=== PATIENT | male | born 1955 | race Caucasian/White ===

== ENCOUNTER 2017-09-15 12:36 | Emergency (ER) | payer OTHER ==
[~2017-09-15] VITALS: Ht 175.3 cm; Wt 95.3 kg
[~2017-09-15 12:36] MED LIST: AMBIEN 5 MG TABL5 M1 PO; AMOXICILLIN 50500 M1 PO; ATIVAN1 MG PO; ATORVASTATIN CA40 MG; BETIMOL15 ML; BUSPAR30 MG PO; CELEXA 20 MG TA20 MG PO; CLONAZEPAM 0.50.5 M1; KLOR-CON 1010 MEQ PO; LEXAPRO; LISINOPRIL10 MG PO; LISINOPRIL2.5 MG; NAPROSYN500 MG PO; NEURONTIN600 MG PO; NEXIUM40 MG PO; NORCO 5-325 TA1 EACH PO; NORCO 7.5-3251 EACH PO; OMEPRAZOLE20 M2 PO; PENICILLIN VK500 M1 PO; PENICILLIN VK500 MG PO; PREDNISONE 20 M20 M1 PO; PRISTIQ50 M1; REMERON15 MG PO; SIMBRINZA 1%-0.28 ML OPHTHALMIC; SKELAXIN 800 M800 M1 PO; SKELAXIN 800 M800 MG PO; SUBOXONE 2 MG-01 TAB; SUBOXONE 8 MG-1 EAC3 SUBLING; TRAVOPROST 0.02.5 ML OPHTHALMIC; VICODIN 5-5001 EACH PO; XANAX 0.5 MG0.5 MG PO; ZANAFLEX4 MG PO
[2017-09-15] MEDS ORDERED: XARELTO20 MG PO (12:44)
[2017-09-15] MEDS ORDERED: KEFLEX500 M1 PO (13:41)
[2017-09-15 14:01] VITALS: BP 129/82
== END 2017-09-15 14:01 | disposition home or self-care (01) ==
LOC: M.ERS 12:36
DX: S01.01XA Laceration without foreign body of scalp, initial encounter (principal); I10 Essential (primary) hypertension; W22.8XXA Striking against or struck by other objects, initial encounter; Y93.89 Activity, other specified; Y92.89 Other specified places as the place of occurrence of the external cause; Y99.8 Other external cause status

== ENCOUNTER 2018-06-10 12:17 | Emergency (ER) | payer OTHER ==
[~2018-06-10] VITALS: Ht 167.6 cm; Wt 90.7 kg
[~2018-06-10 12:17] MED LIST changes: +KEFLEX500 M1 PO; +XARELTO20 MG PO
[2018-06-10] MEDS ORDERED: METAMUCIL FIBE3.4 GM PO (12:34)
[2018-06-10] MEDS ORDERED: BENTYL 10 MG CA10 M1 PO (12:34)
[2018-06-10 13:19] LABS: ABSOLUTE BASOPHILS 0.1 thou/uL (0.0-0.2); ABSOLUTE EOSINOPHILS 0.1 thou/uL (0.0-0.7); ABSOLUTE LYMPHOCYTES 1.8 thou/uL (0.8-5.3); ABSOLUTE MONOCYTES 0.6 thou/uL (0.0-1.2); ABSOLUTE NEUTROPHILS 7.3 thou/uL (1.6-8.1); BASOPHILS 1.1 %; EOSINOPHILS 0.9 %; HEMATOCRIT 48.2 % (42.0-52.0); HEMOGLOBIN 16.2 gm/dL (14.0-18.0); LYMPHOCYTES 18.2 %; MCH 31.3 pg (26.0-34.0); MCHC 33.6 g/dL (28.0-37.0); MCV 93.1 fL (80.0-100.0); MONOCYTES 6.5 %; MPV 7.5 fl. (7.2-11.1); NUCLEATED RBCS 0 /100WBC; PLATELET COUNT* 226 thou/uL (150-400); POLYS 73.3 %; RBC 5.18 mil/uL (4.50-6.00); RDW-CV 13.5 % (10.5-14.5); WBC 9.9 thou/uL (4.0-11.0)
[2018-06-10 13:36] LABS: ANION GAP 2 mmol/L (7-16); BUN 12 mg/dL (7-18); CALCIUM 9.1 mg/dL (8.5-10.1); CHLORIDE 103 mmol/L (98-107); CO2 30 mmol/L (21-32); CREATININE 1.4 mg/dL (0.6-1.3); GLUCOSE 106 mg/dL (70-99); POTASSIUM 4.6 mmol/L (3.5-5.1); SODIUM 135 mmol/L (136-145)
[2018-06-10 13:41] LABS: ALBUMIN 3.7 g/dL (3.4-5.0); ALKALINE PHOSPHATASE 86 U/L (46-116); LIPASE 79 U/L (73-393); SGOT 25 U/L (15-37); SGPT 24 U/L (30-65); TOTAL BILIRUBIN 0.6 mg/dL (<0.1-1.0); TOTAL PROTEIN 8.1 g/dL (6.4-8.2); TROPONIN-I LEVEL <0.06 ng/mL (<0.06)
[2018-06-10 13:43] LABS: URINE BILIRUBIN NEGATIVE (Negative); URINE BLOOD TRACE (Negative); URINE CLARITY CLEAR; URINE COLOR YELLOW; URINE GLUCOSE-RANDOM NEGATIVE (Negative); URINE KETONES NEGATIVE (Negative); URINE LEUKOCYTES-REFLEX NEGATIVE (Negative); URINE NITRITE-REFLEX NEGATIVE (Negative); URINE PROTEIN NEGATIVE (Negative); URINE UROBILINOGEN 0.2 E.U./dl (0.2-1.0)
[2018-06-10] MEDS ORDERED: CARAFATE 1 GM TA1 G1 PO (14:55)
[2018-06-10 15:15] VITALS: BP 122/86
--- NOTE | 2018-06-10 16:41 | EKG ---
[place] [address] ELECTROCARDIOGRAM REPORT Name: MILAGRO SAGE [id number] Admission: 06/10/18 Attend Phys: Discharge: 06/10/18 Date of : 53 Report #: [id number] THIS REPORT FOR: //name// 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: Mk [facility] : 1955 Requested By: Néstor Salmon Order Number: [id number] MD: Emiliano Corrales Measurements Intervals [place] Rate: 87 P: 52 [place]: 198 QRS: 44 QRSD: 128 T: 8 QT: 354 QTc: 426 Interpretive Statements Sinus rhythm Right bundle branch block Borderline ST elevation, lateral leads Compared to ECG 10/12/2015 12:41:51 no change Electronically Signed On 06-10-2018 16:41:39 CDT by Emiliano Corrales [email or web address] <ELECTRONICALLY SIGNED> By: Emiliano Corrales MD, [facility] 06/10/18 1641 1243 1243 Emiliano Corrales MD, FACC /EPI
== END 2018-06-10 15:16 | disposition home or self-care (01) ==
LOC: M.ERS 12:17
PROVIDERS: Emergency Medicine Emergency Medical Services
DX: R10.13 Epigastric pain (principal); R19.7 Diarrhea, unspecified; I12.9 Hypertensive chronic kidney disease with stage 1 through stage 4 chronic kidney disease, or unspecified chronic kidney disease; N18.2 Chronic kidney disease, stage 2 (mild); F41.9 Anxiety disorder, unspecified; E78.5 Hyperlipidemia, unspecified; K21.9 Gastro-esophageal reflux disease without esophagitis

== ENCOUNTER → 2018-07-13 | Outpatient (CLI) | payer OTHER ==
[~2018-07-13] MED LIST changes: +BENTYL 10 MG CA10 M1 PO; +CARAFATE 1 GM TA1 G1 PO; +METAMUCIL FIBE3.4 GM PO
== END ==
LOC: M.LAB 16:42
DX: R11.0 Nausea (principal); R10.9 Unspecified abdominal pain

== ENCOUNTER → 2018-07-21 | Outpatient (CLI) | payer OTHER | LOC: M.NUC 07:30 | DX: R19.7 Diarrhea, unspecified (principal); R10.9 Unspecified abdominal pain; R14.2 Eructation; R11.0 Nausea ==

== ENCOUNTER → 2020-04-05 | Outpatient (CLI) | payer OTHER | LOC: M.NUC 07:30 | PROVIDERS: ATTEND Internal Medicine Gastroenterology | DX: K31.84 Gastroparesis (principal) ==

== ENCOUNTER 2020-10-08 18:26 | Emergency (ER) | payer OTHER ==
[~2020-10-08] VITALS: Ht 175.3 cm; Wt 96.2 kg
[2020-10-08] MEDS ORDERED: AMBIEN5 MG PO (18:39)
[2020-10-08] MEDS ORDERED: LIPITOR40 MG PO (18:39)
[2020-10-08] MEDS ORDERED: DEPRESSION MED (18:40)
[2020-10-08] MEDS ORDERED: LINZESS72 MCG PO (18:40)
[2020-10-08] MEDS ORDERED: CLONAZEPAM 0.50.5 M1 PO (18:48)
[2020-10-08 18:49] LABS: URINE BILIRUBIN NEGATIVE (Negative); URINE BLOOD TRACE (Negative); URINE CLARITY CLEAR; URINE COLOR YELLOW; URINE GLUCOSE-RANDOM NEGATIVE (Negative); URINE KETONES NEGATIVE (Negative); URINE LEUKOCYTES-REFLEX NEGATIVE (Negative); URINE NITRITE-REFLEX NEGATIVE (Negative); URINE PROTEIN NEGATIVE (Negative); URINE SPECIFIC GRAVITY 1.015 (1.005-1.030); URINE UROBILINOGEN 0.2 E.U./dl (0.2-1.0)
[2020-10-08 19:01] LABS: ABSOLUTE BASOPHILS 0.1 thou/uL (0.0-0.2); ABSOLUTE EOSINOPHILS 0.1 thou/uL (0.0-0.7); ABSOLUTE LYMPHOCYTES 2.5 thou/uL (0.8-5.3); ABSOLUTE MONOCYTES 0.8 thou/uL (0.0-1.2); ABSOLUTE NEUTROPHILS 7.2 thou/uL (1.6-8.1); BASOPHILS 0.6 %; EOSINOPHILS 1.1 %; HEMATOCRIT 49.3 % (42.0-52.0); HEMOGLOBIN 16.5 gm/dL (14.0-18.0); LYMPHOCYTES 23.3 %; MCH 31.3 pg (26.0-34.0); MCHC 33.4 g/dL (28.0-37.0); MCV 93.8 fL (80.0-100.0); MONOCYTES 7.2 %; MPV 7.3 fl. (7.2-11.1); NUCLEATED RBCS 0 /100WBC; PLATELET COUNT* 259 thou/uL (150-400); POLYS 67.8 %; RBC 5.26 mil/uL (4.50-6.00); WBC 10.7 thou/uL (4.0-11.0)
[2020-10-08 19:12] LABS: APTT 32.6 Seconds (25.0-31.3); INR 1.2; PROTIME 13.1 Seconds (9.20-11.50)
[2020-10-08 19:14] LABS: CALCIUM 8.7 mg/dL (8.5-10.1); CREATININE 1.4 mg/dL (0.6-1.3); POTASSIUM 3.9 mmol/L (3.5-5.1)
[2020-10-08 19:18] LABS: ALBUMIN 3.7 g/dL (3.4-5.0); TOTAL BILIRUBIN 0.5 mg/dL (<0.1-1.0); TOTAL PROTEIN 7.7 g/dL (6.4-8.2)
[2020-10-08] MEDS ORDERED: BENTYL 10 MG CA10 M1 PO (19:34)
[2020-10-08 20:40] VITALS: BP 132/80
--- NOTE | 2020-10-09 11:03 | EKG ---
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
== END 2020-10-08 20:40 | disposition home or self-care (01) ==
LOC: M.ERS 18:26
PROVIDERS: Nurse Practitioner Family
DX: F41.9 Anxiety disorder, unspecified (principal); G89.29 Other chronic pain; R10.84 Generalized abdominal pain; Z20.822 Contact with and (suspected) exposure to COVID-19; K21.9 Gastro-esophageal reflux disease without esophagitis; E78.5 Hyperlipidemia, unspecified; Z90.89 Acquired absence of other organs; I13.10 Hypertensive heart and chronic kidney disease without heart failure, with stage 1 through stage 4 chronic kidney disease, or unspecified chronic kidney disease; N18.2 Chronic kidney disease, stage 2 (mild); Z86.718 Personal history of other venous thrombosis and embolism

== ENCOUNTER → 2020-10-22 | Outpatient (CLI) | payer OTHER ==
[~2020-10-22] MED LIST changes: +AMBIEN5 MG PO; +CLONAZEPAM 0.50.5 M1 PO; +DEPRESSION MED; +LINZESS72 MCG PO; +LIPITOR40 MG PO
== END ==
LOC: M.CT 13:10
PROVIDERS: ATTEND Family Medicine
DX: R10.84 Generalized abdominal pain (principal)

== ENCOUNTER → 2020-10-30 | Outpatient (CLI) | payer OTHER | LOC: M.CT 12:50 | PROVIDERS: ATTEND Otolaryngology | DX: J32.3 Chronic sphenoidal sinusitis (principal); J32.0 Chronic maxillary sinusitis ==

== ENCOUNTER → 2020-11-15 | Outpatient (CLI) | payer OTHER ==
[2020-11-15 11:38] LABS: HEMATOCRIT 50.8 % (42.0-52.0); HEMOGLOBIN 16.9 gm/dL (14.0-18.0); MCH 31.2 pg (26.0-34.0); MCHC 33.2 g/dL (28.0-37.0); MPV 7.6 fl. (7.2-11.1); RBC 5.4 mil/uL (4.50-6.00); RDW-CV 13.9 % (10.5-14.5); WBC 11.1 thou/uL (4.0-11.0)
[2020-11-15 11:51] LABS: ALBUMIN 3.9 g/dL (3.4-5.0); CALCIUM 9.1 mg/dL (8.5-10.1); CREATININE 1.4 mg/dL (0.6-1.3); POTASSIUM 4.3 mmol/L (3.5-5.1); TOTAL BILIRUBIN 0.4 mg/dL (<0.1-1.0); TOTAL PROTEIN 8.7 g/dL (6.4-8.2)
== END ==
LOC: M.ULTRA 10:30
PROVIDERS: ATTEND Internal Medicine Gastroenterology
DX: K76.0 Fatty (change of) liver, not elsewhere classified (principal); N28.1 Cyst of kidney, acquired; D73.4 Cyst of spleen

== ENCOUNTER → 2020-12-05 | Outpatient (CLI) | payer OTHER | LOC: M.NUC 07:21 | PROVIDERS: ATTEND Internal Medicine Gastroenterology | DX: R10.9 Unspecified abdominal pain (principal) ==

== ENCOUNTER 2021-02-02 17:11 | Emergency (ER) | payer OTHER ==
[~2021-02-02] VITALS: Ht 175.3 cm; Wt 97.1 kg
[2021-02-02] MEDS ORDERED: DEPRESSION MED (17:29)
[2021-02-02 17:55] LABS: ABSOLUTE BASOPHILS 0.1 thou/uL (0.0-0.2); ABSOLUTE EOSINOPHILS 0.1 thou/uL (0.0-0.7); ABSOLUTE LYMPHOCYTES 2.3 thou/uL (0.8-5.3); ABSOLUTE MONOCYTES 0.9 thou/uL (0.0-1.2); ABSOLUTE NEUTROPHILS 8.3 thou/uL (1.6-8.1); BASOPHILS 0.8 %; EOSINOPHILS 0.8 %; HEMATOCRIT 48.1 % (42.0-52.0); HEMOGLOBIN 16.3 gm/dL (14.0-18.0); LYMPHOCYTES 19.4 %; MCH 32.3 pg (26.0-34.0); MCHC 33.9 g/dL (28.0-37.0); MCV 95.5 fL (80.0-100.0); MONOCYTES 7.4 %; MPV 7.7 fl. (7.2-11.1); NUCLEATED RBCS 0 /100WBC; PLATELET COUNT* 253 thou/uL (150-400); POLYS 71.6 %; RBC 5.04 mil/uL (4.50-6.00); RDW-CV 13.7 % (10.5-14.5); WBC 11.7 thou/uL (4.0-11.0)
[2021-02-02 18:04] LABS: CALCIUM 8.3 mg/dL (8.5-10.1); CREATININE 1.3 mg/dL (0.6-1.3); POTASSIUM 3.8 mmol/L (3.5-5.1)
[2021-02-02 18:08] LABS: ALBUMIN 3.6 g/dL (3.4-5.0); TOTAL BILIRUBIN 0.6 mg/dL (<0.1-1.0); TOTAL PROTEIN 7.8 g/dL (6.4-8.2)
[2021-02-02 18:09] LABS: URINE BILIRUBIN NEGATIVE (Negative); URINE BLOOD TRACE (Negative); URINE CLARITY CLEAR; URINE COLOR YELLOW; URINE GLUCOSE-RANDOM NEGATIVE (Negative); URINE KETONES NEGATIVE (Negative); URINE LEUKOCYTES NEGATIVE (Negative); URINE NITRITE NEGATIVE (Negative); URINE PROTEIN NEGATIVE (Negative); URINE UROBILINOGEN 0.2 E.U./dl (0.2-1.0)
[2021-02-02 19:17] VITALS: BP 118/76
--- NOTE | 2021-02-03 11:49 | EKG ---
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: [facility] : 1955 Requested By: Tawny Bonilla Order Number: [id number] MD: Tai Lewis Measurements Intervals [place] Rate: 74 P: 26 [place]: 205 QRS: 39 QRSD: 134 T: 5 QT: 381 QTc: 423 Interpretive Statements Sinus rhythm Consider left atrial enlargement Right bundle branch block Borderline ST elevation, lateral leads Compared to ECG 10/08/2020 18:55:02 No significant changes Electronically Signed On 02-03-2021 11:48:58 CDT by Tai Lewis [email or web address] <ELECTRONICALLY SIGNED> By: Tai Lewis MD, FACC 02/03/21 1148 1735 1735 Tai Lewis MD, [facility] /EPI
== END 2021-02-02 19:17 | disposition home or self-care (01) ==
LOC: M.ERS 17:11
PROVIDERS: Physician Assistant
DX: K58.9 Irritable bowel syndrome, unspecified (principal); G89.29 Other chronic pain; E78.5 Hyperlipidemia, unspecified; K21.9 Gastro-esophageal reflux disease without esophagitis; I12.9 Hypertensive chronic kidney disease with stage 1 through stage 4 chronic kidney disease, or unspecified chronic kidney disease; N18.2 Chronic kidney disease, stage 2 (mild); Z90.89 Acquired absence of other organs; Z86.718 Personal history of other venous thrombosis and embolism

== ENCOUNTER 2021-02-15 23:20 | Observation (INO) | payer OTHER ==
[~2021-02-15] VITALS: Ht 175.3 cm; Wt 95.3 kg
[2021-02-15 23:26] VITALS: BP 115/87
[2021-02-15] MEDS ORDERED: FLAGYL500 M1 PO (23:39)
[2021-02-15 23:50] LABS: ABSOLUTE BASOPHILS 0.1 thou/uL (0.0-0.2); ABSOLUTE EOSINOPHILS 0.1 thou/uL (0.0-0.7); ABSOLUTE LYMPHOCYTES 3.1 thou/uL (0.8-5.3); ABSOLUTE NEUTROPHILS 9.3 thou/uL (1.6-8.1); EOSINOPHILS 0.5 %; HEMATOCRIT 45.6 % (42.0-52.0); HEMOGLOBIN 15.7 gm/dL (14.0-18.0); LYMPHOCYTES 22.9 %; MCH 32.4 pg (26.0-34.0); MCHC 34.4 g/dL (28.0-37.0); MONOCYTES 7.6 %; MPV 7.4 fl. (7.2-11.1); NUCLEATED RBCS 0 /100WBC; PLATELET COUNT* 267 thou/uL (150-400); RBC 4.85 mil/uL (4.50-6.00); RDW-CV 14.1 % (10.5-14.5); WBC 13.7 thou/uL (4.0-11.0)
[2021-02-15 23:59] LABS: URINE BILIRUBIN NEGATIVE (Negative); URINE BLOOD TRACE (Negative); URINE CLARITY CLEAR; URINE COLOR YELLOW; URINE GLUCOSE-RANDOM NEGATIVE (Negative); URINE KETONES NEGATIVE (Negative); URINE LEUKOCYTES-REFLEX NEGATIVE (Negative); URINE NITRITE-REFLEX NEGATIVE (Negative); URINE PROTEIN NEGATIVE (Negative); URINE UROBILINOGEN 0.2 E.U./dl (0.2-1.0)
[2021-02-16 00:01] LABS: CALCIUM 8.5 mg/dL (8.5-10.1); CREATININE 1.4 mg/dL (0.6-1.3); POTASSIUM 3.9 mmol/L (3.5-5.1)
[2021-02-16 00:05] LABS: ALBUMIN 3.9 g/dL (3.4-5.0); MAGNESIUM 2.1 mg/dL (1.8-2.4); TOTAL BILIRUBIN 0.4 mg/dL (<0.1-1.0); TOTAL PROTEIN 7.9 g/dL (6.4-8.2)
[2021-02-16 06:29] VITALS: BP 135/86
[2021-02-16 10:30] VITALS: BP 139/86
[2021-02-16 11:37] LABS: AMP/METHAMP Negative (Negative); BARBITURATES Negative (Negative); BENZODIAZEPINES Negative (Negative); COCAINE Negative (Negative); METHADONE Negative (Negative); OPIATES POSITIVE (Negative); PCP Negative (Negative); THC Negative (Negative)
--- NOTE | 2021-02-16 11:41 | EKG ---
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
[2021-02-16] MEDS ORDERED: ONDANSETRON HCL4 M2 PO (11:43)
[2021-02-16] MEDS ORDERED: PERCOCET 5-3251 EACH PO (11:43)
[2021-02-16 13:15] VITALS: BP 139/86
[2021-02-16 13:34] VITALS: BP 118/83
[2021-02-16 14:48] VITALS: BP 139/86
== END 2021-02-16 13:34 | disposition home or self-care (01) ==
LOC: M.ERS 23:20 → M.TBA-ER 02-16 02:29
PROVIDERS: Emergency Medicine; ADMIT Internal Medicine; ATTEND Internal Medicine
DX: R10.33 Periumbilical pain (principal); G89.29 Other chronic pain; Z20.822 Contact with and (suspected) exposure to COVID-19; E78.5 Hyperlipidemia, unspecified; K21.9 Gastro-esophageal reflux disease without esophagitis; D72.829 Elevated white blood cell count, unspecified; K59.00 Constipation, unspecified; F41.9 Anxiety disorder, unspecified; H40.9 Unspecified glaucoma; K58.9 Irritable bowel syndrome, unspecified; I12.9 Hypertensive chronic kidney disease with stage 1 through stage 4 chronic kidney disease, or unspecified chronic kidney disease; N18.2 Chronic kidney disease, stage 2 (mild); N17.9 Acute kidney failure, unspecified; Z86.718 Personal history of other venous thrombosis and embolism; Z98.890 Other specified postprocedural states

== ENCOUNTER 2021-04-15 12:45 | Emergency (ER) | payer OTHER ==
[~2021-04-15] VITALS: Ht 175.3 cm; Wt 99.3 kg
[~2021-04-15 12:45] MED LIST changes: +FLAGYL500 M1 PO; +ONDANSETRON HCL4 M2 PO; +PERCOCET 5-3251 EACH PO
--- NOTE | 2021-04-15 13:21 | EKG ---
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: [facility] : 1955 Requested By: Qian Jesus Order Number: [id number] MD: Emiliano Corrales Measurements Intervals [place] Rate: 87 P: 63 [place]: 183 QRS: 76 QRSD: 124 T: 30 QT: 351 QTc: 423 Interpretive Statements Sinus rhythm Right bundle branch block Compared to ECG 02/15/2021 23:35:57 no change Electronically Signed On 04-15-2021 13:21:29 CDT by Emiliano Corrales [email or web address] <ELECTRONICALLY SIGNED> By: Emiliano Corrales MD, [facility] 04/15/21 1321 1257 1257 Emiliano Corrales MD, FAC /EPI
[2021-04-15 14:33] LABS: URINE BILIRUBIN NEGATIVE (Negative); URINE BLOOD TRACE (Negative); URINE CLARITY CLEAR; URINE COLOR YELLOW; URINE GLUCOSE-RANDOM NEGATIVE (Negative); URINE KETONES NEGATIVE (Negative); URINE LEUKOCYTES NEGATIVE (Negative); URINE NITRITE NEGATIVE (Negative); URINE PROTEIN NEGATIVE (Negative); URINE UROBILINOGEN 0.2 E.U./dl (0.2-1.0)
[2021-04-15 14:48] LABS: ABSOLUTE BASOPHILS 0.1 thou/uL (0.0-0.2); ABSOLUTE LYMPHOCYTES 1.7 thou/uL (0.8-5.3); ABSOLUTE MONOCYTES 0.8 thou/uL (0.0-1.2); ABSOLUTE NEUTROPHILS 9.1 thou/uL (1.6-8.1); BASOPHILS 0.6 %; EOSINOPHILS 0.3 %; HEMATOCRIT 49.7 % (42.0-52.0); HEMOGLOBIN 16.4 gm/dL (14.0-18.0); LYMPHOCYTES 14.6 %; MCH 31.3 pg (26.0-34.0); MCHC 33.1 g/dL (28.0-37.0); MCV 94.6 fL (80.0-100.0); MONOCYTES 7.2 %; MPV 7.3 fl. (7.2-11.1); NUCLEATED RBCS 0 /100WBC; PLATELET COUNT* 265 thou/uL (150-400); POLYS 77.3 %; RBC 5.25 mil/uL (4.50-6.00); RDW-CV 13.1 % (10.5-14.5); WBC 11.7 thou/uL (4.0-11.0)
[2021-04-15 15:06] LABS: CALCIUM 9.1 mg/dL (8.5-10.1); CREATININE 1.3 mg/dL (0.6-1.3); POTASSIUM 4.5 mmol/L (3.5-5.1)
[2021-04-15 15:10] LABS: ALBUMIN 3.9 g/dL (3.4-5.0); TOTAL BILIRUBIN 0.6 mg/dL (<0.1-1.0); TOTAL PROTEIN 8.1 g/dL (6.4-8.2)
[2021-04-15] MEDS ORDERED: ZOFRAN ODT4 MG PO (16:58)
[2021-04-15 17:18] VITALS: BP 127/75
== END 2021-04-15 17:19 | disposition home or self-care (01) ==
LOC: M.ERS 12:45
PROVIDERS: Emergency Medicine
DX: R07.89 Other chest pain (principal); Z20.822 Contact with and (suspected) exposure to COVID-19; R06.09 Other forms of dyspnea; I12.9 Hypertensive chronic kidney disease with stage 1 through stage 4 chronic kidney disease, or unspecified chronic kidney disease; N18.2 Chronic kidney disease, stage 2 (mild); F41.9 Anxiety disorder, unspecified; E78.5 Hyperlipidemia, unspecified; K21.9 Gastro-esophageal reflux disease without esophagitis; Z90.89 Acquired absence of other organs; Z79.891 Long term (current) use of opiate analgesic; Z79.899 Other long term (current) drug therapy

== ENCOUNTER → 2021-05-17 | Outpatient (CLI) | payer OTHER ==
[~2021-05-17] MED LIST changes: +ZOFRAN ODT4 MG PO
--- NOTE | 2021-05-23 13:29 | CARDNUC ---
[place] [address] CARDIAC NUCLEAR IMAGING REPORT Name: MILAGRO SAGE Room: [facility]#: [id number] Admission: 05/17/21 Attend Phys: Chrissy Reese Discharge: Date of : 53 Date of Service: 05/23/21 1329 Report #: [id number] THIS REPORT FOR: cc: Constantin Rojo John E. DO Liston, Michael J. MD [facility] ~ APPROVED REPORT Imaging Protocol: Stress Tc-99m/Rest Tc-99m 1 day Study performed: 05/17/2021 09:19:10 Indication: Chest pain, Dyspnea Patient Location: Out-Patient Stress Tech: Anne Torres Stress Nurse: Dora Haley RN NM Tech:LANCE Beckwith Ht: 5 ft 9 in Wt: 205 lbs BSA: 2.09 m2 HR: 71 bpm BP: 121/70 mmHg BMI: 30.26 Rhythm: NSR Medical History Medical History: Hyperlipidemia, HTN, Arrhythmia Medications: Lipitor, Lisinopril, Xarelto Allergies: No known drug allergies Cardiac Risk Factors: Diabetes (non-insulin), HTN, Hyperlipidemia, PVD Previous Cardiac Procedures: N/A Pretest Chest Pain Characteristics: No chest pain Meds Held (24 hrs): N/A Meds Held (48 hrs): N/A Pts stress test was scheduled for 1400, he arrived at 0900. He states he was instructed to refrain from caffeine intake after 1400 yesterday; last intake was at 1500 yesterday. Pt experienced nausea, chest pressure, and dizziness starting less than one minute after Lexiscan administered. Zofran 4mg IVP was given at that time. Intensity of these s/s began subsiding upon administration of caffeinated beverage at four minutes after Lexiscan administration with complete resolution at 8 minutes. TM Stress Test Details Stress Test: Pharmacologic stress testing performed using 0.4 mg of regadenoson per 5 mL given IV over [address] [place] [address] CARDIAC NUCLEAR IMAGING REPORT Name: MILAGRO SAGE Room: [facility]#: [id number] Admission: 05/17/21 Attend Phys: Chrissy Reese Discharge: Date of : 53 Date of Service: 05/23/21 1329 Report #: [id number] HR Max Heart Rate (APMHR): 153 bpm Resting HR: 71 bpm Target HR (85% APMHR): 130 bpm Max HR Achieved: 98 bpm % of APMHR: 64 Recovery HR: 93 bpm BP Resting BP: 121/70 mmHg Max BP: 107/78 mmHg Recovery BP: 120/60 mmHg ECG Resting ECG: Sinus Rhythm, RBBB Stress ECG: Sinus Rhythm, RBBB ST Change: None Arrhythmia: None Recovery ECG: Sinus Rhythm, RBBB Recovery ST Change: None Recovery Arrhythmia: None Clinical Reason for Termination: Completed protocol Patient had some mild nausea, chest pressure and dizziness with Lexiscan infusion felt to be due to medication effect. Stress ECG Conclusion Baseline twelve-lead EKG shows sinus rhythm with right bundle branch block. There were no ST segment abnormalities. EKGs obtained during and post Lexiscan infusion showed sinus rhythm with right bundle branch block without significant ST segment changes when compared to baseline. There were no stress-induced arrhythmias. Study Quality Study: Good Artifact: Mild Diaphragmatic artifact Study Data At rest, the left ventricular ejection fraction was 72%.. Post stress, the left ventricular ejection was 77%.. TID = 1.10. Perfusion Perfusion images obtained in the supine position at rest and post Lexiscan stress show very mild photopenia in the inferior wall that resolved completely with post stress prone imaging consistent with diaphragmatic attenuation artifact. [place] [address] CARDIAC NUCLEAR IMAGING REPORT Name: MILAGRO SAGE Room: [facility]#: [id number] Admission: 05/17/21 Attend Phys: Chrissy Reese Discharge: Date of : 53 Date of Service: 05/23/21 1329 Report #: [id number] reversible defects were identified. Wall Motion Normal left ventricular wall motion. Nuclear Conclusion ECG Findings: negative for ischemia Clinical Findings: negative for ischemia Nuclear Findings: negative for ischemia Exercise Capacity: not assessed Left Ventricular Function: normal Risk Study: low Perfusion images show no defect to suggest infarct or ischemia. Left ventricular systolic function is normal on gated studies. This is a low risk study. <Conclusion> Baseline twelve-lead EKG shows sinus rhythm with right bundle branch block. There were no ST segment abnormalities. EKGs obtained during and post Lexiscan infusion showed sinus rhythm with right bundle branch block without significant ST segment changes when compared to baseline. There were no stress-induced arrhythmias. <ELECTRONICALLY SIGNED> By: Tai Lewis MD, FACC 05/23/21 1329 28 28 Tai Lewis MD, FACC /INF
== END ==
LOC: M.NUC 05-03 15:02
PROVIDERS: ATTEND Internal Medicine
DX: I45.10 Unspecified right bundle-branch block (principal); R06.00 Dyspnea, unspecified; R07.89 Other chest pain

== ENCOUNTER → 2021-07-01 | Outpatient (CLI) | payer OTHER ==
[2021-07-01 10:15] LABS: CREATININE 1.4 mg/dL (0.6-1.3)
== END ==
LOC: M.LAB 06-26 08:30 → M.CT 06-26 09:30 → M.LAB 09:42
PROVIDERS: ATTEND Nurse Practitioner Family
DX: J98.4 Other disorders of lung (principal); M25.78 Osteophyte, vertebrae